=== PATIENT | male | born 1960 | race Caucasian/White ===

== ENCOUNTER → 2016-12-19 | Outpatient (CLI) | payer BC ==
[~2016-12-19] MED LIST: ALEVE220 M1 PO; LOSARTAN POTASS50 MG PO; PROTONIX40 MG PO
--- NOTE | ~2016-12-19 | ESTC ---
Cardiac Perfusion Imaging Demographics Patient Name BRANDEN Chavez Gender Male Patient Number [id number] Race Visit Number [id number] Ethnicity Corporate ID Room Number Accession Number [id number] Height 69 inches Date of 1960 Weight 194 pounds Interpreting Alexandre Date of study 12/19/2016 Physician Beverley Supervising /ZEB ROSALES Technologist Roma Lowery Ordering Physician Alexandre Stress Beverley roof service technician Stress ECG Reading Alexandre Grande Physician Beverley Garcia RN The procedure was explained in detail to the patient. Risks, complications and alternative treatments were reviewed. Written consent was obtained. Medications Reviewed with Patient prior to Procedure. Procedure Procedure Type: Nuclear Stress Test:Pharmacological, Lexiscan, Cardiolite Stress Test Procedure Start time: 12/19/2016 09:45 Indications: Chest discomfort. Risk Factors The patient risk factors include:former tobacco use, hypertension and family history of premature CAD. Conclusions Summary Perfusion Images: The overall quality of the study is good. Left ventricular cavity is noted to be normal on the stress and rest studies. There is no evidence of abnormal lung activity. Stress SPECT images and Rest SPECT images demonstrate homogenous tracer distribution throughout the myocardium except for a mild decrease uptake in the area involving the basal inferior wall consistent with soft tissue attenuation. Gated SPECT imaging reveals normal myocardial thickening and wall motion. The left ventricular ejection fraction was calculated to be 58%. Impression ECG portion of stress test is clinically negative for ischemia by diagnostic criteria. Myocardial perfusion imaging is probably normal. The mild basal inferior wall defect worse at rest with preserved wall motion is consistent with soft tissue attenuation. Overall left ventricular systolic function was normal without regional wall motion abnormalities. Stress Protocols Resting ECG Normal sinus rhythm. Pre-stress physical exam: Patient assessed by Dr Mendez prior to testing. Pt has left knee pain limiting his activity Predicted HR: 162 bpm ECG Findings No ECG changes suggestive of ischemia. Arrhythmias No rhythm abnormality. Symptoms No symptoms with Lexiscan infusion. Stress Interpretation Appropriate hemodynamic response to Lexiscan. No significant ST-T wave changes with Lexiscan. ECG portion is negative for ischemia by diagnostic criteria. Imaging Results Applied corrections - Motion correction applied High risk findings Summed scores - Summed stress score: 6 - Summed rest score: 8 - Summed difference score: -2 Stress ejection Ejection fraction:59 % EDV :100 ml ESV :41 ml Stroke volume :59 ml LV mass :144 gr Imaging Protocols Rest Stress Isotope:Tc99m Sestamibi IV Isotope: Tc99m Sestamibi IV Isotope dose:13.5 mCi Isotope dose:42.1 mCi Date:12/19/2016 07:31 Date:12/19/2016 10:00 Technique: SPECT Technique: Gated Supine SPECT Supine Scan Time:45-60 minutes post Scan Time:45-60 minutes post injection injection Procedure Medications - Regadenoson (Lexiscan) 0.4 mg IV over 10-15 sec. I.V. 0.4 mg. Medications administered per verbal order and read back to physician prior to administration. Medical History Admission Data Admission date: 12/19/2016 Admission Time: 06:58 Hospital Status: Outpatient. Signatures dtt: BEVERLEY MENDEZ dtd: 12/19/16 0945 Physician Self Edit
== END | disposition disaster alternative care site (69) ==
LOC: GRAD 06:58
DX: R07.89 Other chest pain (principal); I10 Essential (primary) hypertension; M25.512 Pain in left shoulder; Z87.891 Personal history of nicotine dependence; Z82.49 Family history of ischemic heart disease and other diseases of the circulatory system
CPT/HCPCS: A9500; J2785